=== PATIENT | male | born 1970 | race Caucasian/White ===

== ENCOUNTER 2022-06-17 11:04 | Emergency (ER) | payer OTHER ==
[~2022-06-17] VITALS: Ht 182.9 cm; Wt 86.2 kg
[2022-06-17 11:10] VITALS: BP 130/86
== END 2022-06-17 12:45 | disposition home or self-care (01) ==
LOC: ER 11:04
DX: S09.90XA Unspecified injury of head, initial encounter (principal); M54.2 Cervicalgia; W31.89XA Contact with other specified machinery, initial encounter
CPT/HCPCS: 70450; 72125; 90714; A9270